=== PATIENT | female | born 1955 | race Caucasian/White ===

== ENCOUNTER → 2021-06-20 14:01 | Outpatient (CLI) | payer OTHER, SELFPAY ==
--- NOTE | ~2021-06-20 | MR_ITS ---
EXAMINATION: MR lumbar spine wo con DATE: 06/20/2021 15:10 INDICATION: Low back pain. Left-sided sciatica. TECHNIQUE: Magnetic resonance imaging (MRI) of the lumbar spine was performed without intravenous con trast. Sequences included sagittal T2-weighted FSE, sagittal T2-weighted FS FSE, sagittal T1-weighted FSE, and axial T2-weighted FSE. COMPARISON: None FINDINGS: There is 3 mm retrolisthesis of L2 on L3 and L3 on L4, 3 mm anterolisthesis of L4 on L5, an d 4 mm retrolisthesis of L5 on S1. There is a chronic compression fracture of L1 with 3/5 loss of hei ght centrally. There is moderately decreased disc height at L1-L2, L2-L3, and L3-L4, mildly decreased disc height at L4-L5, and severely decreased disc height at L5-S1 with endplate remodeling. The dist al spinal cord signal intensity is normal. The conus medullaris is at L1. The following disc levels a re specifically discussed: L1-L2: The disc is bulging. There is mild right and moderate left facet joint osteoarthritis. There i s mild bilateral neural foraminal stenosis. There is mild central canal stenosis. L2-L3: The disc is bulging with superimposed left subarticular zone extrusion. There is mild bilatera l facet joint osteoarthritis. There is mild bilateral neural foraminal stenosis. There is mild centra l canal stenosis. L3-L4: The disc is bulging and has an annular fissure. There is mild right and moderate left facet hipolito int osteoarthritis. There is mild bilateral neural foraminal stenosis. There is mild central canal st enosis. L4-L5: The disc is bulging and has an annular fissure. There is severe bilateral facet joint osteoart hritis. There is mild bilateral neural foraminal stenosis. There is mild central canal stenosis. L5-S1: The disc is bulging and has an annular fissure. There is mild bilateral facet joint osteoarthr itis. There is moderate bilateral neural foraminal stenosis. There is mild central canal stenosis. IMPRESSION: 1. Severe lumbar spondylosis. Reviewed, dictated and finalized at location A. [facility] [employer]
== END ==
DX: M47.896 Other spondylosis, lumbar region (principal)
CPT/HCPCS: 72148